=== PATIENT | female | born 1955 | race Caucasian/White ===

== ENCOUNTER 2017-07-19 10:05 | Emergency (ER) | payer OTHER ==
[~2017-07-19] VITALS: Ht 172.7 cm; Wt 94.0 kg
[~2017-07-19 10:05] MED LIST: ALPR1TAB7 PO; ATEN25TA PO; FIORINAL PO; HYDR-3972 PO; LOSA1TAB36 PO; ONDA4TAB12 PO; OXYC-138 PO; ZOLP5TAB8 PO
[2017-07-19 10:23] VITALS: BP 136/74
== END 2017-07-19 11:17 | disposition home or self-care (01) ==
LOC: ER 10:05
DX: K57.32 Diverticulitis of large intestine without perforation or abscess without bleeding (principal); I10 Essential (primary) hypertension; G89.29 Other chronic pain; G43.909 Migraine, unspecified, not intractable, without status migrainosus; Z87.442 Personal history of urinary calculi; Z90.49 Acquired absence of other specified parts of digestive tract; Z98.890 Other specified postprocedural states; Z88.2 Allergy status to sulfonamides; Z79.899 Other long term (current) drug therapy
CPT/HCPCS: 74176; 99284

== ENCOUNTER 2017-07-25 11:39 | Outpatient (CLI) | payer OTHER ==
[2017-07-25 12:05] LABS: BASOPHILS % (AUTO) 0.2 % (0-1); EOSINOPHILS # (AUTO) 0.3 X10'3 (0-0.9); HEMATOCRIT 40.7 % (35.0-45.0); HEMOGLOBIN 14.1 g/dl (12.0-16.0); LYMPHOCYTES # (AUTO) 3.2 X10'3 (1.1-4.8); LYMPHOCYTES % (AUTO) 36.8 % (21-51); MEAN CORPUSCULAR HEMOGLOBIN 30.2 PG (27.0-31.0); MEAN CORPUSCULAR HGB CONC 34.7 % (33.0-36.5); MEAN PLATELET VOLUME 8.2 FL (7.4-10.4); MONOCYTES # (AUTO) 0.5 X10'3 (0-0.9); NEUTROPHILS # (AUTO) 4.6 X10'3 (1.8-7.7); PLATELET COUNT 284 X10'3 (140-440); RED BLOOD COUNT 4.69 X10'6 (4.20-5.60); RED CELL DISTRIBUTION WIDTH 13.1 % (11.5-14.5); WHITE BLOOD COUNT 8.6 X10'3 (4.5-11.0)
[2017-07-25 12:30] LABS: ALANINE AMINOTRANSFERASE 35 U/L (12-78); ALBUMIN/GLOBULIN RATIO 1.1 (1.1-1.5); ALKALINE PHOSPHATASE 125 IU/L (46-116); ANION GAP 11 (8-16); ASPARTATE AMINO TRANSFERASE 22 U/L (10-37); BILIRUBIN,TOTAL 0.4 MG/DL (0.1-1.0); BLOOD UREA NITROGEN 10 MG/DL (7-18); BUN/CREATININE RATIO 12.7 (6.6-38.0); CALCIUM 9.3 MG/DL (8.5-10.1); CHLORIDE 102 MMOL/L (99-107); CHOL/HDL RATIO 3.1 (0.00-4.99); CHOLESTEROL 209 MG/DL (0-200); CREATININE 0.79 MG/DL (0.40-0.90); GLUCOSE 180 MG/DL (70-104); HDL CHOLESTEROL 67 MG/DL (35-60); LDL CHOLESTEROL 107 MG/DL (50-100); POTASSIUM 4.3 MMOL/L (3.5-5.1); SODIUM 142 MMOL/L (135-145); TOTAL PROTEIN 7.5 G/DL (6.4-8.2); TRIGLYCERIDES 166 MG/DL (20-135); eGFR 74 ML/MIN
== END 2017-07-25 23:59 | disposition home or self-care (01) ==
LOC: LAB 11:39
PROVIDERS: ATTEND Family Medicine
DX: E03.9 Hypothyroidism, unspecified (principal); I10 Essential (primary) hypertension; E78.5 Hyperlipidemia, unspecified; E11.9 Type 2 diabetes mellitus without complications; Z85.828 Personal history of other malignant neoplasm of skin
CPT/HCPCS: 36415; 80053; 80061; 84443; 85025

== ENCOUNTER 2017-09-16 16:43 | Emergency (ER) | payer OTHER ==
[~2017-09-16] VITALS: Ht 172.7 cm; Wt 94.5 kg
[2017-09-16] MEDS ORDERED: proMETHazine 25mg tablet PO ONE (16:55)
[2017-09-16] MEDS ORDERED: meperidine/PF 50mg/ml syringe IM ONE (16:55)
[2017-09-16 17:50] VITALS: BP 158/86
== END 2017-09-16 18:22 | disposition home or self-care (01) ==
LOC: ER 16:43
DX: R51 Headache (principal); I10 Essential (primary) hypertension; G89.29 Other chronic pain; Z98.890 Other specified postprocedural states
CPT/HCPCS: 96372; 99283; J2175; Q0169

== ENCOUNTER 2017-11-21 17:48 | Outpatient (CLI) | payer OTHER | END 2017-11-21 23:59 | disposition home or self-care (01) | LOC: RAD 17:48 | PROVIDERS: ATTEND Family Medicine | DX: M17.0 Bilateral primary osteoarthritis of knee (principal); I10 Essential (primary) hypertension; E78.5 Hyperlipidemia, unspecified; E03.9 Hypothyroidism, unspecified; E11.9 Type 2 diabetes mellitus without complications; Z88.2 Allergy status to sulfonamides; Z79.899 Other long term (current) drug therapy; E55.9 Vitamin D deficiency, unspecified | CPT/HCPCS: 73560; 73565 ==

== ENCOUNTER 2018-05-20 11:35 | Emergency (ER) | payer OTHER ==
[~2018-05-20] VITALS: Ht 172.7 cm; Wt 98.4 kg
[2018-05-20] MEDS ORDERED: aspirin 81mg tab.chew PO ONE (11:40)
[2018-05-20 12:02] LABS: BASOPHILS % (AUTO) 0.4 % (0-1); EOSINOPHILS # (AUTO) 0.2 X10'3 (0-0.9); EOSINOPHILS % (AUTO) 2.1 % (0-6); HEMATOCRIT 41.4 % (35.0-45.0); LYMPHOCYTES # (AUTO) 2.4 X10'3 (1.1-4.8); LYMPHOCYTES % (AUTO) 27.9 % (21-51); MEAN CORPUSCULAR HGB CONC 33.8 % (33.0-36.5); MEAN CORPUSCULAR VOLUME 88.8 FL (78-98); MEAN PLATELET VOLUME 8.3 FL (7.4-10.4); MONOCYTES # (AUTO) 0.4 X10'3 (0-0.9); MONOCYTES % (AUTO) 4.9 % (2-12); NEUTROPHILS # (AUTO) 5.7 X10'3 (1.8-7.7); NEUTROPHILS % (AUTO) 64.7 % (42-75); PLATELET COUNT 281 X10'3 (140-440); RED BLOOD COUNT 4.67 X10'6 (4.20-5.60); RED CELL DISTRIBUTION WIDTH 12.6 % (11.5-14.5); WHITE BLOOD COUNT 8.7 X10'3 (4.5-11.0)
[2018-05-20 12:16] LABS: ALANINE AMINOTRANSFERASE 32 U/L (12-78); ALBUMIN 3.9 G/DL (3.4-5.0); ALBUMIN/GLOBULIN RATIO 1.1 (1.1-1.5); ALKALINE PHOSPHATASE 134 IU/L (46-116); ANION GAP 11 (8-16); ASPARTATE AMINO TRANSFERASE 17 U/L (10-37); BILIRUBIN,TOTAL 0.3 MG/DL (0.1-1.0); BLOOD UREA NITROGEN 18 MG/DL (7-18); BUN/CREATININE RATIO 20.9 (6.6-38.0); CALCIUM 9.2 MG/DL (8.5-10.1); CHLORIDE 99 MMOL/L (99-107); CREATININE 0.86 MG/DL (0.40-0.90); GLUCOSE 263 MG/DL (70-104); POTASSIUM 3.8 MMOL/L (3.5-5.1); SODIUM 138 MMOL/L (135-145); TOTAL CARBON DIOXIDE 28.1 MMOL/L (24-32); TOTAL PROTEIN 7.4 G/DL (6.4-8.2); eGFR 67 ML/MIN
[2018-05-20 12:23] LABS: MAGNESIUM 1.7 MG/DL (1.5-2.4)
[2018-05-20] MEDS ORDERED: nitroGLYCERIN 0.4mg SUBLingual tab SL PRN (15:10)
[2018-05-20] MEDS ORDERED: metoprolol tartrate 1mg/ml inj IV PRN (15:10)
[2018-05-20] MEDS ORDERED: regadenoson 0.4mg/5ml syringe IV PRN (15:10)
[2018-05-20] MEDS ORDERED: aminophylline 250mg/10ml inj. IV PRN (15:10)
--- NOTE | 2018-05-20 16:21 | NUR ---
PT. HAD NO RELEIF HELP SO SHE CONTINUED TO DO X-RAYS FOR THE HOSPITAL WHILE BEING A PT. PT. SEEN MULTIPLE TIMES WITH X-RAY MACHINE. PT. WAS WAITING FOR A SECOND TROPONIN TO COME BACK. BOTH WERE 0.04... PT. IS SCHEDULED FOR A STRESS TEST EARLY AM.
[2018-05-20 18:14] VITALS: BP 142/90
== END 2018-05-20 17:16 | disposition home or self-care (01) ==
LOC: ER 11:35
DX: R07.89 Other chest pain (principal); R51 Headache; I10 Essential (primary) hypertension; E11.9 Type 2 diabetes mellitus without complications; G89.29 Other chronic pain; E78.00 Pure hypercholesterolemia, unspecified; Z90.49 Acquired absence of other specified parts of digestive tract; Z98.890 Other specified postprocedural states; Z88.8 Allergy status to other drugs, medicaments and biological substances; Z79.899 Other long term (current) drug therapy; Z95.9 Presence of cardiac and vascular implant and graft, unspecified
CPT/HCPCS: 36415; 80053; 83735; 83880; 84484; 85025; 93005; 99284; J0280

== ENCOUNTER 2018-05-21 08:54 | Outpatient (CLI) | payer OTHER ==
[2018-05-21] VITALS (8 sets, daily range): BP systolic 142–171; BP diastolic 78–98
[~2018-05-21] VITALS: Ht 172.7 cm; Wt 96.0 kg
[2018-05-21] MEDS ORDERED: nitroGLYCERIN 0.4mg SUBLingual tab SL PRN (09:45)
[2018-05-21] MEDS ORDERED: regadenoson 0.4mg/5ml syringe IV PRN (09:45)
[2018-05-21] MEDS ORDERED: aminophylline 250mg/10ml inj. IV PRN (09:45)
[2018-05-21] MEDS ORDERED: aminophylline inj. 10 ML IV ONE (10:15)
[2018-05-21] MEDS ORDERED: regadenoson 0.4mg/5ml syringe IV ONE (10:15)
== END 2018-05-21 23:59 | disposition home or self-care (01) ==
LOC: RAD 08:54
PROVIDERS: ATTEND Internal Medicine Interventional Cardiology
DX: R07.89 Other chest pain (principal); I10 Essential (primary) hypertension; Z82.49 Family history of ischemic heart disease and other diseases of the circulatory system; Z79.899 Other long term (current) drug therapy; Z88.8 Allergy status to other drugs, medicaments and biological substances; Z72.89 Other problems related to lifestyle
CPT/HCPCS: 78452; 93017; A9500; J0280

== ENCOUNTER 2018-08-20 12:31 | Emergency (ER) | payer OTHER ==
[~2018-08-20] VITALS: Ht 172.7 cm; Wt 97.0 kg
[2018-08-20 12:32] VITALS: BP 141/72
[2018-08-20] MEDS ORDERED: ketorolac trometh inj. 60 MG/2 ML VIAL IM ONE (12:45)
[2018-08-20 13:44] LABS: CLARITY,URINE CLEAR (Clear); COLOR,URINE YELLOW (Yellow); GLUCOSE, URINE 500 mg/dl (Neg); KETONES,URINE NEGATIVE (Neg); LEUKOCYTE ESTERASE ,URINE NEGATIVE (Neg); NITRITES, URINE NEGATIVE (Neg); OCCULT BLOOD,URINE NEGATIVE (Neg); PH,URINE 5.5 (4.8-8.0); PROTEIN,URINE NEGATIVE (Neg); UROBILINOGEN,URINE 0.2 E.U/dL (0.2-1.0)
[2018-08-20 13:46] LABS: UA COLLECTION TYPE VOIDED
== END 2018-08-20 14:32 | disposition home or self-care (01) ==
LOC: ER 12:31
DX: K57.30 Diverticulosis of large intestine without perforation or abscess without bleeding (principal); R16.0 Hepatomegaly, not elsewhere classified; I10 Essential (primary) hypertension; G89.29 Other chronic pain; Z90.49 Acquired absence of other specified parts of digestive tract; Z98.890 Other specified postprocedural states; Z88.8 Allergy status to other drugs, medicaments and biological substances; Z79.899 Other long term (current) drug therapy
CPT/HCPCS: 74176; 81003; 96372; 99284; J1885

== ENCOUNTER 2018-12-21 12:54 | Outpatient (CLI) | payer OTHER ==
[2019-01-13] MEDS ORDERED: TIZA4TAB11 PO (15:14)
== END 2018-12-21 23:59 | disposition home or self-care (01) ==
LOC: CARD DIAG 12:54
PROVIDERS: ATTEND Internal Medicine Interventional Cardiology
DX: I08.3 Combined rheumatic disorders of mitral, aortic and tricuspid valves (principal); I10 Essential (primary) hypertension
CPT/HCPCS: 93306

== ENCOUNTER 2019-01-22 07:17 | Day surgery (SDC) | payer BC, OTHER ==
[2019-01-13 15:15] LABS: RED BLOOD COUNT 4.75 X10'6 (4.20-5.60)
[2019-01-13 15:16] LABS: BASOPHILS # (AUTO) 0.1 X10'3 (0-0.2); BASOPHILS % (AUTO) 0.8 % (0-1); EOSINOPHILS # (AUTO) 0.2 X10'3 (0-0.9); EOSINOPHILS % (AUTO) 2.4 % (0-6); LYMPHOCYTES % (AUTO) 35.6 % (21-51); MEAN CORPUSCULAR HEMOGLOBIN 30.3 PG (27.0-31.0); MEAN CORPUSCULAR HGB CONC 34.6 g/dL (33.0-36.5); MEAN CORPUSCULAR VOLUME 87.6 FL (78-98); MEAN PLATELET VOLUME 8.3 FL (7.4-10.4); MONOCYTES # (AUTO) 0.5 X10'3 (0-0.9); MONOCYTES % (AUTO) 5.7 % (2-12); NEUTROPHILS # (AUTO) 4.6 X10'3 (1.8-7.7); NEUTROPHILS % (AUTO) 55.5 % (42-75); PRE OP HEMATOCRIT 41.6 % (35.0-45.0); PRE OP HEMOGLOBIN 14.4 g/dL (12.0-16.0); PRE OP PLATELET COUNT 290 X10'3 (140-440); RED CELL DISTRIBUTION WIDTH 13.4 % (11.5-14.5)
[2019-01-13 15:26] LABS: ALBUMIN 4.4 G/DL (3.4-5.0); ALBUMIN/GLOBULIN RATIO 1.3 (1.1-1.5); ALKALINE PHOSPHATASE 108 IU/L (46-116); BLOOD UREA NITROGEN 12 MG/DL (7-18); BUN/CREATININE RATIO 17.9 (6.6-38.0); CALCIUM 9.6 MG/DL (8.5-10.1); CHLORIDE 103 MMOL/L (99-107); CREATININE 0.67 MG/DL (0.40-0.90); PRE OP ALT 40 U/L (30-65); PRE OP ANION GAP 10 (8-16); PRE OP AST 22 U/L (10-37); PRE OP BILIRUB, TOTAL 0.3 MG/DL (0.0-1.0); PRE OP GLUCOSE 115 MG/DL (70-104); PRE OP POTASSIUM 4.2 MMOL/L (3.4-5.1); PRE OP SODIUM 142 MMOL/L (135-145); TOTAL PROTEIN 7.8 G/DL (6.4-8.2); eGFR 89 ML/MIN
[2019-01-22] VITALS (8 sets, daily range): BP systolic 85–164; BP diastolic 40–90
[~2019-01-22] VITALS: Ht 172.7 cm; Wt 96.1 kg
[~2019-01-22 07:17] MED LIST changes: -ALPR1TAB7 PO; -ATEN25TA PO; -FIORINAL PO; -ONDA4TAB12 PO; -OXYC-138 PO; +TIZA4TAB11 PO
[2019-01-22] MEDS ORDERED: ringers solution, lacted 1,000 ML IV SCH ×2 (07:30→12:59)
[2019-01-22] MEDS ORDERED: famotidine 20mg tablet PO ONE (07:30)
[2019-01-22] MEDS ORDERED: BUPIVAcaine/PF 2.5mg/ml (0.25%) 10ml vial ONE (07:30)
[2019-01-22] MEDS ORDERED: cefazolin/dext.iso 2gm/100ml 100 ML IV ONE (07:30)
--- NOTE | 2019-01-22 08:51 | NUR ---
BG REPORTED TO DR FERNANDEZ Addendum: 01/22/19 at 0902 by Azucena Mas RN Amended: Links added.
[2019-01-22] MEDS ORDERED: LIDOcaine 0.5% (5mg/ml) 50ml vial ONE (08:57)
[2019-01-22] MEDS ORDERED: fentaNYL/PF 50MCG/1 ML 2ML syringe ONE (09:38)
[2019-01-22] MEDS ORDERED: midazolam 2 mg/2 ml injection ONE ×3 (09:38→12:39)
[2019-01-22] MEDS ORDERED: meperidine/PF 25mg/ml syringe IV ONE (10:35)
[2019-01-22] MEDS ORDERED: propofol inj 20 ML IV ONE ×3 (12:28→13:03)
[2019-01-22] MEDS ORDERED: ondansetron/PF 4mg/2ml inj IV PRN (13:00)
[2019-01-22] MEDS ORDERED: proCHLORperazine 10 MG/2 ml inj IV PRN (13:00)
[2019-01-22] MEDS ORDERED: meperidine/PF 25mg/ml syringe IV PRN ×2 (13:00)
[2019-01-22] MEDS ORDERED: morphine 4 MG/ML inj SYRINge IV PRN ×2 (13:00)
--- NOTE | 2019-01-22 13:19 | NUR ---
Received from OR via [facility] , accompanied by Anesthesiologist JEREMY and report given by Anesthesiolgist. VSS. DENIES PAIN. 20G PIV IN RIGHT UE RUNNING LR AT 100. DENIES PAIN AT THIS TIME. + CAP REFILL, CSM ALL INTACT. VSS Addendum: 01/22/19 at 1451 by Zana Warren RN, RN Amended: Links added.
[2019-01-22] MEDS: meperidine/PF 25mg/ml syringe IV PRN ×2 (13:30→13:52)
--- NOTE | 2019-01-22 14:29 | NUR ---
ALL DC CRITERIA HAS BEEN MET. IV TAKEN OUT WITHOUT COMPLICATIONS. ALL INSTRUCTIONS COVERED AND ALL QUESTIONS ANSWERED. DRESSINGS CDI. OUT VIA WHEELCHAIR TO PERSONAL VEHICLE WHERE PATIENT WAS SECURED IN AND DRIVEN HOME BY FAMILY. HEADACHE MORE TOLERABLE AT THIS TIME. DRESSING IS CDI. ELEVATING AND BLOCK STILL IN PLACE. VSS. Addendum: 01/22/19 at 1450 by Zana Warren RN, RN Amended: Links added.
== END 2019-01-22 14:29 | disposition home or self-care (01) ==
LOC: PAS 07:17
PROVIDERS: ATTEND Orthopaedic Surgery Hand Surgery
DX: M18.12 Unilateral primary osteoarthritis of first carpometacarpal joint, left hand (principal); I10 Essential (primary) hypertension; E11.9 Type 2 diabetes mellitus without complications; G43.909 Migraine, unspecified, not intractable, without status migrainosus; E66.9 Obesity, unspecified; Z68.32 Body mass index [BMI] 32.0-32.9, adult; Z88.8 Allergy status to other drugs, medicaments and biological substances; Z79.899 Other long term (current) drug therapy; Z98.890 Other specified postprocedural states
CPT/HCPCS: 25447; 36415; 80053; 82948; 85025; 93005; C1776; J2001; J2175; J2250; J2270; J2704; J3010; J3490; J7120; A4215

== ENCOUNTER 2019-03-18 12:23 | Outpatient (CLI) | payer OTHER | END 2019-03-18 23:59 | disposition home or self-care (01) | LOC: RAD 12:23 | PROVIDERS: ATTEND Chiropractor | DX: M43.22 Fusion of spine, cervical region (principal); M40.292 Other kyphosis, cervical region; I65.29 Occlusion and stenosis of unspecified carotid artery | CPT/HCPCS: 72050 ==

== ENCOUNTER 2019-12-23 11:18 | Outpatient (CLI) | payer BC ==
[2019-12-23 12:06] LABS: BASOPHILS % (AUTO) 0.5 % (0-1); EOSINOPHILS # (AUTO) 0.1 X10'3 (0-0.9); EOSINOPHILS % (AUTO) 1.3 % (0-6); HEMOGLOBIN 14.5 g/dl (12.0-16.0); LYMPHOCYTES # (AUTO) 2.4 X10'3 (1.1-4.8); LYMPHOCYTES % (AUTO) 29.4 % (21-51); MEAN CORPUSCULAR HGB CONC 34.4 g/dL (33.0-36.5); MEAN CORPUSCULAR VOLUME 87.2 FL (78-98); MEAN PLATELET VOLUME 8.2 FL (7.4-10.4); MONOCYTES # (AUTO) 0.5 X10'3 (0-0.9); MONOCYTES % (AUTO) 5.7 % (2-12); NEUTROPHILS # (AUTO) 5.2 X10'3 (1.8-7.7); NEUTROPHILS % (AUTO) 63.1 % (42-75); PLATELET COUNT 289 X10'3 (140-440); RED BLOOD COUNT 4.82 X10'6 (4.20-5.60); RED CELL DISTRIBUTION WIDTH 13.4 % (11.5-14.5); WHITE BLOOD COUNT 8.2 X10'3 (4.5-11.0)
[2019-12-23 12:20] LABS: HEMOGLOBIN A1C 7.3 % (4.5-6.2)
[2019-12-23 12:25] LABS: ALANINE AMINOTRANSFERASE 26 U/L (12-78); ALBUMIN 4.1 G/DL (3.4-5.0); ALBUMIN/GLOBULIN RATIO 1.2 (1.1-1.5); ALKALINE PHOSPHATASE 108 IU/L (46-116); ANION GAP 10 (8-16); ASPARTATE AMINO TRANSFERASE 15 U/L (10-37); BILIRUBIN,TOTAL 0.5 MG/DL (0.1-1.0); BLOOD UREA NITROGEN 18 MG/DL (7-18); BUN/CREATININE RATIO 23.4 (6.6-38.0); CALCIUM 9.1 MG/DL (8.5-10.1); CHLORIDE 100 MMOL/L (99-107); CHOL/HDL RATIO 3.7 (0.00-4.99); CHOLESTEROL 227 MG/DL (0-200); CREATININE 0.77 MG/DL (0.40-0.90); GLUCOSE 119 MG/DL (70-104); HDL CHOLESTEROL 62 MG/DL (35-60); LDL CHOLESTEROL 135 MG/DL (50-100); POTASSIUM 3.5 MMOL/L (3.5-5.1); SODIUM 137 MMOL/L (135-145); TOTAL CARBON DIOXIDE 27.2 MMOL/L (24-32); TOTAL PROTEIN 7.4 G/DL (6.4-8.2); TRIGLYCERIDES 203 MG/DL (20-135); eGFR 75 ML/MIN
== END 2019-12-23 23:59 | disposition home or self-care (01) ==
LOC: LAB 11:18
PROVIDERS: ATTEND Nurse Practitioner
DX: Z00.01 Encounter for general adult medical examination with abnormal findings (principal); E11.9 Type 2 diabetes mellitus without complications; R79.89 Other specified abnormal findings of blood chemistry; R94.6 Abnormal results of thyroid function studies; E78.9 Disorder of lipoprotein metabolism, unspecified
CPT/HCPCS: 36415; 80053; 80061; 83036; 83520; 85025

== ENCOUNTER → 2020-10-14 | Outpatient (CLI) | payer BC | END | disposition home or self-care (01) | LOC: RAD 12:49 | DX: M79.671 Pain in right foot (principal) | CPT/HCPCS: 73620 ==

== ENCOUNTER 2020-11-15 13:44 | Outpatient (CLI) | payer BC | END 2020-11-15 23:59 | disposition home or self-care (01) | LOC: RAD 13:44 | PROVIDERS: ATTEND Nurse Practitioner | DX: K76.0 Fatty (change of) liver, not elsewhere classified (principal) | CPT/HCPCS: 76700 ==

== ENCOUNTER 2021-01-10 15:33 | Outpatient (CLI) | payer BC | END 2021-01-10 23:59 | disposition home or self-care (01) | LOC: RAD 15:33 | PROVIDERS: ATTEND Nurse Practitioner | DX: M25.561 Pain in right knee (principal); I87.8 Other specified disorders of veins | CPT/HCPCS: 73502 ==

== ENCOUNTER 2021-02-16 09:01 | Emergency (ER) | payer BC ==
[~2021-02-16] VITALS: Ht 177.8 cm; Wt 90.9 kg
[2021-02-16 09:05] VITALS: BP 159/94
[2021-02-16] MEDS ORDERED: LIDOcaine 5% patch TP STA (09:11)
[2021-02-16] MEDS ORDERED: HYDR-3972 PO (09:22)
[2021-02-16] MEDS ORDERED: mupirocin 2% ointment 22GM TP STA (09:22)
[2021-02-16] MEDS ORDERED: ketorolac trometh inj. 60 MG/2 ML VIAL IM ONE (09:25)
--- NOTE | 2021-02-16 10:10 | NUR ---
abraison elbow, pt washed and cream applied.
[2021-02-16] MEDS ORDERED: LIDO700A32 TOP (10:38)
== END 2021-02-16 10:42 | disposition home or self-care (01) ==
LOC: EEVIPCON 09:02 → ER 09:02
DX: S50.01XA Contusion of right elbow, initial encounter (principal); S50.312A Abrasion of left elbow, initial encounter; S80.212A Abrasion, left knee, initial encounter; S80.211A Abrasion, right knee, initial encounter; R07.89 Other chest pain; G43.909 Migraine, unspecified, not intractable, without status migrainosus; I10 Essential (primary) hypertension; G89.29 Other chronic pain; Z87.442 Personal history of urinary calculi; Z90.49 Acquired absence of other specified parts of digestive tract; Z98.890 Other specified postprocedural states; Z88.8 Allergy status to other drugs, medicaments and biological substances; Z79.899 Other long term (current) drug therapy; W01.0XXA Fall on same level from slipping, tripping and stumbling without subsequent striking against object, initial encounter; Y93.01 Activity, walking, marching and hiking; Y92.89 Other specified places as the place of occurrence of the external cause; Y99.8 Other external cause status
CPT/HCPCS: 71045; 71111; 96372; 99284; J1885

== ENCOUNTER 2021-04-05 12:43 | Outpatient (CLI) | payer BC ==
[~2021-04-05 12:43] MED LIST changes: +LIDO700A32 TOP
[2021-04-05 14:08] LABS: BASOPHILS % (AUTO) 0.5 % (0-1); EOSINOPHILS # (AUTO) 0.1 X10'3 (0-0.9); EOSINOPHILS % (AUTO) 1.2 % (0-6); HEMATOCRIT 42.5 % (35.0-45.0); HEMOGLOBIN 14.7 g/dl (12.0-16.0); LYMPHOCYTES # (AUTO) 1.9 X10'3 (1.1-4.8); LYMPHOCYTES % (AUTO) 23.7 % (21-51); MEAN CORPUSCULAR HEMOGLOBIN 29.8 PG (27.0-31.0); MEAN CORPUSCULAR HGB CONC 34.5 g/dL (33.0-36.5); MEAN CORPUSCULAR VOLUME 86.4 FL (78-98); MONOCYTES # (AUTO) 0.6 X10'3 (0-0.9); MONOCYTES % (AUTO) 7.5 % (2-12); NEUTROPHILS # (AUTO) 5.3 X10'3 (1.8-7.7); NEUTROPHILS % (AUTO) 67.1 % (42-75); PLATELET COUNT 272 X10'3 (140-440); RED BLOOD COUNT 4.92 X10'6 (4.20-5.60); RED CELL DISTRIBUTION WIDTH 13.4 % (11.5-14.5); WHITE BLOOD COUNT 7.9 X10'3 (4.5-11.0)
[2021-04-05 14:13] LABS: ALANINE AMINOTRANSFERASE 26 U/L (12-78); ALBUMIN 4.2 G/DL (3.4-5.0); ALBUMIN/GLOBULIN RATIO 1.2 (1.1-1.5); ALKALINE PHOSPHATASE 105 IU/L (46-116); ANION GAP 12 (8-16); ASPARTATE AMINO TRANSFERASE 17 U/L (10-37); BILIRUBIN,TOTAL 0.5 MG/DL (0.1-1.0); BLOOD UREA NITROGEN 12 MG/DL (7-18); BUN/CREATININE RATIO 15.8 (6.6-38.0); CALCIUM 9.3 MG/DL (8.5-10.1); CHLORIDE 101 MMOL/L (99-107); CHOL/HDL RATIO 3.5 (0.00-4.99); CHOLESTEROL 232 MG/DL (0-200); CREATININE 0.76 MG/DL (0.40-0.90); GLUCOSE 135 MG/DL (70-104); HDL CHOLESTEROL 66 MG/DL (35-60); LDL CHOLESTEROL 129 MG/DL (50-100); POTASSIUM 3.2 MMOL/L (3.5-5.1); SODIUM 140 MMOL/L (135-145); TOTAL PROTEIN 7.6 G/DL (6.4-8.2); TRIGLYCERIDES 219 MG/DL (20-135); eGFR 76 ML/MIN
[2021-04-05 14:42] LABS: HEMOGLOBIN A1C 6.7 % (4.5-6.2)
[2021-04-05 15:04] LABS: RHEUM FACTOR QUAL REFLEX TITER NEGATIVE (Neg)
[2021-04-07 11:41] LABS: MICROALB/CRT, RATIO 13 mg/g creat (0-29)
[2021-04-09 12:13] LABS: ANTINUCLEAR ANTIBODIES Negative (Negative)
== END 2021-04-05 23:59 | disposition home or self-care (01) ==
LOC: LAB 12:43
PROVIDERS: ATTEND Nurse Practitioner
DX: Z00.01 Encounter for general adult medical examination with abnormal findings (principal); M25.50 Pain in unspecified joint; E11.9 Type 2 diabetes mellitus without complications; E78.00 Pure hypercholesterolemia, unspecified; R68.89 Other general symptoms and signs; R94.6 Abnormal results of thyroid function studies; E78.9 Disorder of lipoprotein metabolism, unspecified; I10 Essential (primary) hypertension; E78.5 Hyperlipidemia, unspecified
CPT/HCPCS: 36415; 80053; 80061; 82043; 82570; 83036; 85025; 85651; 86038; 86430

== ENCOUNTER 2022-02-11 16:30 | Emergency (ER) | payer BC ==
[~2022-02-11] VITALS: Ht 172.7 cm; Wt 89.1 kg
[2022-02-11] MEDS ORDERED: BEBTELOVIMAB 175 MG/2 ML VIAL IV ONE (16:35)
[2022-02-11] MEDS ORDERED: ketorolac trometh. 30mg/ml inj. IV ONE (16:45)
[2022-02-11] MEDS ORDERED: acetaminophen 325mg tablet PO ONE (16:45)
[2022-02-11] MEDS ORDERED: DEXA6TAB6 PO (16:47)
[2022-02-11] MEDS ORDERED: dexamethasone sod phosphate 10mg/ml inj IV STA (16:47)
[2022-02-11] MEDS ORDERED: BUDE180A INH (16:47)
[2022-02-11] MEDS ORDERED: ALBU6.7H14 INH (16:47)
[2022-02-11 16:57] VITALS: BP 163/103
== END 2022-02-11 18:06 | disposition home or self-care (01) ==
LOC: ER 16:31
DX: U07.1 COVID-19 (principal)
CPT/HCPCS: 71045; 96374; 96375; 99284; J1100; J1885; M0222; Q0222

== ENCOUNTER 2022-11-06 14:41 | Emergency (ER) | payer BC ==
[~2022-11-06] VITALS: Ht 172.7 cm; Wt 100.0 kg
[~2022-11-06 14:41] MED LIST changes: +ALBU6.7H14 INH; +BUDE180A INH; +DEXA6TAB6 PO
[2022-11-06 14:45] VITALS: BP 138/95
== END 2022-11-06 16:17 | disposition home or self-care (01) ==
LOC: ER 14:42
DX: M25.561 Pain in right knee (principal); G43.909 Migraine, unspecified, not intractable, without status migrainosus; I10 Essential (primary) hypertension; Z88.8 Allergy status to other drugs, medicaments and biological substances; Z88.4 Allergy status to anesthetic agent; Z98.890 Other specified postprocedural states
CPT/HCPCS: 93971; 99284

== ENCOUNTER → 2022-11-07 | Outpatient (CLI) | payer BC | END | disposition home or self-care (01) | LOC: RAD 11:19 | PROVIDERS: ATTEND Nurse Practitioner Family | DX: M22.41 Chondromalacia patellae, right knee (principal); M25.861 Other specified joint disorders, right knee; R60.9 Edema, unspecified; Z74.09 Other reduced mobility; M25.461 Effusion, right knee; M25.561 Pain in right knee | CPT/HCPCS: 73721 ==

== ENCOUNTER 2023-01-09 13:01 | Outpatient (CLI) | payer BC ==
[2023-01-09 14:21] LABS: BASOPHILS # (AUTO) 0.1 X10'3 (0-0.2); BASOPHILS % (AUTO) 0.8 % (0-1); EOSINOPHILS # (AUTO) 0.2 X10'3 (0-0.9); EOSINOPHILS % (AUTO) 2.2 % (0-6); HEMATOCRIT 46.2 % (35.0-45.0); HEMOGLOBIN 15.6 g/dl (12.0-16.0); LYMPHOCYTES # (AUTO) 2.1 X10'3 (1.1-4.8); LYMPHOCYTES % (AUTO) 27.9 % (21-51); MEAN CORPUSCULAR HEMOGLOBIN 29.5 PG (27.0-31.0); MEAN CORPUSCULAR HGB CONC 33.8 g/dL (33.0-36.5); MEAN CORPUSCULAR VOLUME 87.5 FL (78-98); MEAN PLATELET VOLUME 8.3 FL (7.4-10.4); MONOCYTES # (AUTO) 0.4 X10'3 (0-0.9); MONOCYTES % (AUTO) 5.5 % (2-12); NEUTROPHILS # (AUTO) 4.8 X10'3 (1.8-7.7); NEUTROPHILS % (AUTO) 63.6 % (42-75); PLATELET COUNT 268 X10'3 (140-440); RED BLOOD COUNT 5.29 X10'6 (4.20-5.60); RED CELL DISTRIBUTION WIDTH 13.4 % (11.5-14.5); WHITE BLOOD COUNT 7.5 X10'3 (4.5-11.0)
[2023-01-09 14:49] LABS: ALANINE AMINOTRANSFERASE 34 U/L (12-78); ALBUMIN 4.2 G/DL (3.4-5.0); ALBUMIN/GLOBULIN RATIO 1.3 (1.1-1.5); ALKALINE PHOSPHATASE 126 IU/L (46-116); ANION GAP 11 (8-16); ASPARTATE AMINO TRANSFERASE 18 U/L (10-37); BILIRUBIN,TOTAL 0.4 MG/DL (0.1-1.0); BLOOD UREA NITROGEN 18 MG/DL (7-18); BUN/CREATININE RATIO 23.1 (10.0-20.0); CALCIUM 9.4 MG/DL (8.5-10.1); CHLORIDE 102 MMOL/L (99-107); CHOL/HDL RATIO 3.3 (0.00-4.99); CHOLESTEROL 220 MG/DL (0-200); CREATININE 0.78 MG/DL (0.40-0.90); GLUCOSE 193 MG/DL (70-104); HDL CHOLESTEROL 66 MG/DL (35-60); LDL CHOLESTEROL 120 MG/DL (50-100); SODIUM 138 MMOL/L (135-145); THYROID STIMULATING HORMONE 1.44 ulU/ml (0.34-4.50); TOTAL CARBON DIOXIDE 24.6 MMOL/L (24-32); TOTAL PROTEIN 7.4 G/DL (6.4-8.2); TRIGLYCERIDES 133 MG/DL (20-135); eGFR 74 ML/MIN
[2023-01-09 16:03] LABS: HEMOGLOBIN A1C 7.3 % (4.5-6.2)
== END 2023-01-09 23:59 | disposition home or self-care (01) ==
LOC: LAB 13:01
PROVIDERS: ATTEND Family Medicine
DX: E11.9 Type 2 diabetes mellitus without complications (principal); E78.00 Pure hypercholesterolemia, unspecified
CPT/HCPCS: 36415; 80053; 80061; 83036; 84436; 84443; 85025

== ENCOUNTER 2023-02-19 14:26 | Outpatient (CLI) | payer BC | END 2023-02-19 23:59 | disposition home or self-care (01) | LOC: RAD 14:26 | PROVIDERS: ATTEND Emergency Medicine | DX: S83.282A Other tear of lateral meniscus, current injury, left knee, initial encounter (principal); M25.462 Effusion, left knee; X58.XXXA Exposure to other specified factors, initial encounter; Y93.89 Activity, other specified; Y92.89 Other specified places as the place of occurrence of the external cause; Y99.8 Other external cause status | CPT/HCPCS: 73721 ==

== ENCOUNTER 2023-03-14 15:12 | Emergency (ER) | payer OTHER ==
[~2023-03-14] VITALS: Ht 172.7 cm; Wt 89.1 kg
[2023-03-14 15:20] VITALS: BP 134/77; PULSE 82; RESP 17; TEMP 97.7; O2SAT 94
--- NOTE | 2023-03-14 16:28 | NUR ---
SPOKE WITH PATIENT REGARDING MRI SCREENING FORM, STATES SHE WILL FILL OUT THE FORM EUGENIO.
== END 2023-03-14 18:30 | disposition home or self-care (01) ==
LOC: ER 15:12
DX: M75.102 Unspecified rotator cuff tear or rupture of left shoulder, not specified as traumatic (principal); M25.512 Pain in left shoulder; X58.XXXA Exposure to other specified factors, initial encounter; Y93.89 Activity, other specified; Y92.89 Other specified places as the place of occurrence of the external cause; Y99.8 Other external cause status
CPT/HCPCS: 73221; 99284

== ENCOUNTER 2023-04-08 12:16 | Day surgery (SDC) | payer BC ==
[2023-04-08] VITALS (9 sets, daily range): BP systolic 120–137; BP diastolic 8–88; PULSE 84–95; RESP 16–18; O2SAT 98–99
[~2023-04-08] VITALS: Ht 172.7 cm; Wt 41.8 kg
[~2023-04-08 12:16] MED LIST changes: -ALBU6.7H14 INH; -BUDE180A INH; -DEXA6TAB6 PO; -LIDO700A32 TOP; -LOSA1TAB36 PO; -ZOLP5TAB8 PO
[2023-04-08] MEDS ORDERED: EMPA25TA PO (12:45)
[2023-04-08] MEDS ORDERED: ATOR10TA70 PO (12:46)
[2023-04-08] MEDS ORDERED: fentaNYL/PF 50MCG/1 ML 2ML syringe ONE (12:47)
[2023-04-08] MEDS ORDERED: MIDAZolam 1 MG/ML 5ML VIAL ONE (12:48)
== END 2023-04-08 14:10 | disposition home or self-care (01) ==
LOC: GI LAB 12:16
PROVIDERS: ATTEND Internal Medicine Gastroenterology
DX: Z12.11 Encounter for screening for malignant neoplasm of colon (principal); D12.0 Benign neoplasm of cecum; D12.2 Benign neoplasm of ascending colon; K57.30 Diverticulosis of large intestine without perforation or abscess without bleeding; Z86.010 Personal history of colon polyps; Z83.719 Family history of colon polyps, unspecified
CPT/HCPCS: 45385; 99152; 99153; C1889; J2250; J3010; J7030; Z7512; 45380; A4620

== ENCOUNTER 2023-07-09 12:52 | Outpatient (CLI) | payer BC ==
[~2023-07-09 12:52] MED LIST changes: +ATOR10TA70 PO; +EMPA25TA PO
== END 2023-07-09 23:59 | disposition home or self-care (01) ==
LOC: RAD 12:52
PROVIDERS: ATTEND Orthopaedic Surgery
DX: S83.207A Unspecified tear of unspecified meniscus, current injury, left knee, initial encounter (principal); M71.21 Synovial cyst of popliteal space [Baker], right knee; M25.461 Effusion, right knee; M85.88 Other specified disorders of bone density and structure, other site; X58.XXXA Exposure to other specified factors, initial encounter; Y93.89 Activity, other specified; Y92.89 Other specified places as the place of occurrence of the external cause; Y99.8 Other external cause status
CPT/HCPCS: 73564

== ENCOUNTER 2023-08-22 05:23 | Day surgery (SDC) | payer BC ==
[2023-08-19 11:30] LABS: BASOPHILS % (AUTO) 0.4 % (0-1); EOSINOPHILS # (AUTO) 0.1 X10'3 (0-0.9); EOSINOPHILS % (AUTO) 1.2 % (0-6); LYMPHOCYTES # (AUTO) 1.8 X10'3 (1.1-4.8); LYMPHOCYTES % (AUTO) 17.8 % (21-51); MEAN CORPUSCULAR HEMOGLOBIN 29.8 PG (27.0-31.0); MEAN CORPUSCULAR HGB CONC 33.7 g/dL (33.0-36.5); MEAN CORPUSCULAR VOLUME 88.4 FL (78-98); MEAN PLATELET VOLUME 7.8 FL (7.4-10.4); MONOCYTES # (AUTO) 0.6 X10'3 (0-0.9); NEUTROPHILS # (AUTO) 7.4 X10'3 (1.8-7.7); NEUTROPHILS % (AUTO) 74.6 % (42-75); PRE OP HEMOGLOBIN 15.2 g/dL (12.0-16.0); PRE OP PLATELET COUNT 239 X10'3 (140-440); PRE OP WHITE BLOOD COUNT 9.9 10'3 (4.8-10.8); RED BLOOD COUNT 5.09 X10'6 (4.20-5.60); RED CELL DISTRIBUTION WIDTH 13.6 % (11.5-14.5)
[2023-08-19 11:54] LABS: ALBUMIN 3.9 G/DL (3.4-5.0); ALBUMIN/GLOBULIN RATIO 1.1 (1.1-1.5); ALKALINE PHOSPHATASE 114 IU/L (46-116); BLOOD UREA NITROGEN 9 MG/DL (7-18); BUN/CREATININE RATIO 11.5 (10.0-20.0); CHLORIDE 102 MMOL/L (99-107); CREATININE 0.78 MG/DL (0.40-0.90); PRE OP ALT 24 U/L (30-65); PRE OP ANION GAP 8 (8-16); PRE OP AST 15 U/L (10-37); PRE OP BILIRUB, TOTAL 0.5 MG/DL (0.0-1.0); PRE OP GLUCOSE 145 MG/DL (70-104); PRE OP POTASSIUM 4.1 MMOL/L (3.4-5.1); PRE OP SODIUM 139 MMOL/L (135-145); TOTAL CARBON DIOXIDE 28.8 MMOL/L (24-32); TOTAL PROTEIN 7.5 G/DL (6.4-8.2); eGFR 73 ML/MIN
[~2023-08-22] VITALS: Ht 172.7 cm; Wt 85.9 kg
[2023-08-22] VITALS (11 sets, daily range): BP systolic 126–145; BP diastolic 66–86; PULSE 91–107; RESP 12–16; TEMP 98.1; O2SAT 93–98
[~2023-08-22 05:23] MED LIST changes: +ESZO2TAB56 PO; +SEMA2PEN SQ; +TRAZ-251 PO
[2023-08-22] MEDS: ringers solution, lacted 1,000 ML IV SCH (06:00)
[2023-08-22] MEDS: famotidine 20mg tablet PO ONE (06:00)
[2023-08-22] MEDS: cefazolin 2gm/D5W 100mL 100 ML IV ONE (06:02)
[2023-08-22] MEDS: HYDROcodone/acetaminophen 10/325mg tab PO ONE (06:53)
[2023-08-22] MEDS ORDERED: propofol inj 20 ML IV ONE (07:04)
[2023-08-22] MEDS ORDERED: midazolam 1 mg/ML 2ml injection ONE (07:04)
[2023-08-22] MEDS ORDERED: fentaNYL/PF 50MCG/1 ML 2ML syringe ONE (07:04)
[2023-08-22] MEDS ORDERED: ondansetron/PF 4mg/2ml inj ONE (07:05)
[2023-08-22] MEDS ORDERED: dexamethasone sod phosphate 4mg/ml inj. ONE (07:05)
[2023-08-22] MEDS ORDERED: BUPIVAcaine 0.5% inj/PF 30 ML ONE ×2 (07:05→07:06)
[2023-08-22] MEDS ORDERED: meperidine/PF 25mg/ml syringe IV PRN ×2 (07:10)
[2023-08-22] MEDS ORDERED: morphine 4 MG/ML inj SYRINge IV PRN (07:10)
[2023-08-22] MEDS ORDERED: ringers solution, lacted 1,000 ML IV SCH (07:10)
[2023-08-22] MEDS ORDERED: morphine 2 MG/ML inj. syringe IV PRN (07:10)
[2023-08-22] MEDS ORDERED: proCHLORperazine 10 MG/2 ml inj IV PRN (07:10)
[2023-08-22] MEDS ORDERED: ondansetron/PF 4mg/2ml inj IV PRN (07:10)
[2023-08-22] MEDS ORDERED: sevoflurane 250ml liquid IH ONE (07:13)
[2023-08-22] MEDS: LIDOcaine 1% w/EPI 1:100,000 inj. MDV 50 ML VIAL ONE (08:10)
[2023-08-22] MEDS: LIDOcaine 1% 30ml preserv. free vial ONE (08:10)
[2023-08-22] MEDS: morphine 10mg/ml inj. ONE (08:11)
[2023-08-22] MEDS: meperidine/PF 25mg/ml syringe IV PRN (08:17)
== END 2023-08-22 09:29 | disposition home or self-care (01) ==
LOC: PAS 05:23
PROVIDERS: ATTEND Orthopaedic Surgery
DX: S83.231A Complex tear of medial meniscus, current injury, right knee, initial encounter (principal); S83.281A Other tear of lateral meniscus, current injury, right knee, initial encounter; M94.261 Chondromalacia, right knee; I10 Essential (primary) hypertension; E11.9 Type 2 diabetes mellitus without complications; E66.9 Obesity, unspecified; I20.9 Angina pectoris, unspecified; Z79.891 Long term (current) use of opiate analgesic; Z79.899 Other long term (current) drug therapy; Z98.890 Other specified postprocedural states; Z68.28 Body mass index [BMI] 28.0-28.9, adult; Z88.8 Allergy status to other drugs, medicaments and biological substances; X58.XXXA Exposure to other specified factors, initial encounter; Y93.89 Activity, other specified; Y92.89 Other specified places as the place of occurrence of the external cause; Y99.8 Other external cause status
CPT/HCPCS: 29880; 36415; 80053; 82948; 85025; 93005; J0665; J0690; J1100; J2175; J2250; J2274; J2405; J2704; J3010; J3490; J7120; Z7506; Z7512; A4215; A4618; A6253; A6449; A7000; S0020

== ENCOUNTER 2023-12-31 15:58 | Outpatient (CLI) | payer BC ==
[2023-12-31 16:29] LABS: BASOPHILS % (AUTO) 0.4 % (0-1); EOSINOPHILS # (AUTO) 0.1 X10'3 (0-0.9); HEMATOCRIT 44.1 % (35.0-45.0); HEMOGLOBIN 15.1 g/dl (12.0-16.0); LYMPHOCYTES % (AUTO) 22.3 % (21-51); MEAN CORPUSCULAR HEMOGLOBIN 30.7 PG (27.0-31.0); MEAN CORPUSCULAR HGB CONC 34.2 g/dL (33.0-36.5); MEAN CORPUSCULAR VOLUME 89.7 FL (78-98); MEAN PLATELET VOLUME 7.8 FL (7.4-10.4); MONOCYTES # (AUTO) 0.5 X10'3 (0-0.9); MONOCYTES % (AUTO) 5.4 % (2-12); NEUTROPHILS # (AUTO) 6.2 X10'3 (1.8-7.7); NEUTROPHILS % (AUTO) 70.9 % (42-75); PLATELET COUNT 235 X10'3 (140-440); RED BLOOD COUNT 4.91 X10'6 (4.20-5.60); RED CELL DISTRIBUTION WIDTH 13.5 % (11.5-14.5); WHITE BLOOD COUNT 8.7 X10'3 (4.5-11.0)
[2023-12-31] MEDS ORDERED: iohexol 300mg/ml 100ml inj. ONE (16:58)
[2023-12-31 17:05] LABS: HEMOGLOBIN A1C 6.6 % (4.5-6.2)
[2023-12-31 17:44] LABS: ALANINE AMINOTRANSFERASE 18 U/L (12-78); ALBUMIN/GLOBULIN RATIO 1.2 (1.1-1.5); ALKALINE PHOSPHATASE 107 IU/L (46-116); ANION GAP 16 (8-16); ASPARTATE AMINO TRANSFERASE 16 U/L (10-37); BILIRUBIN,TOTAL 0.3 MG/DL (0.1-1.0); BLOOD UREA NITROGEN 18 MG/DL (7-18); BUN/CREATININE RATIO 19.8 (10.0-20.0); CALCIUM 9.2 MG/DL (8.5-10.1); CHLORIDE 102 MMOL/L (99-107); CHOL/HDL RATIO 3.5 (0.00-4.99); CHOLESTEROL 229 MG/DL (0-200); CREATININE 0.91 MG/DL (0.40-0.90); GLUCOSE 153 MG/DL (70-104); HDL CHOLESTEROL 66 MG/DL (35-60); LDL CHOLESTEROL 125 MG/DL (50-100); POTASSIUM 4.1 MMOL/L (3.5-5.1); SODIUM 137 MMOL/L (135-145); THYROID STIMULATING HORMONE 1.16 ulU/ml (0.34-4.50); TOTAL CARBON DIOXIDE 19.2 MMOL/L (24-32); TOTAL PROTEIN 7.3 G/DL (6.4-8.2); TRIGLYCERIDES 179 MG/DL (20-135); eGFR 61 ML/MIN
[2024-01-02 16:34] LABS: CREATININE, URINE 108.1 mg/dL (Not Estab.); MICROALBUMIN,U,RANDOM 16.7 ug/mL (Not Estab.)
== END 2023-12-31 23:59 | disposition home or self-care (01) ==
LOC: RAD 15:58
PROVIDERS: ATTEND Physician Assistant
DX: J32.9 Chronic sinusitis, unspecified (principal); E11.9 Type 2 diabetes mellitus without complications; Z00.00 Encounter for general adult medical examination without abnormal findings
CPT/HCPCS: 36415; 70488; 80053; 80061; 82043; 82570; 83036; 84436; 84443; 85025; Q9967

== ENCOUNTER 2024-03-31 13:12 | Emergency (ER) | payer BC ==
[~2024-03-31] VITALS: Ht 172.7 cm; Wt 85.0 kg
[2024-03-31 13:14] VITALS: BP 122/88; PULSE 89; TEMP 97.8; O2SAT 100
[2024-03-31] MEDS ORDERED: HYDR-3965 PO (13:43)
[2024-03-31] MEDS: ketorolac trometh 30MG/ML vial 30 MG/ML VIAL IM ONE (13:48)
[2024-03-31 13:57] VITALS: RESP 18
[2024-03-31] MEDS ORDERED: OXYC-658 PO (17:32)
[2024-03-31] MEDS ORDERED: ONDA-243 PO (17:32)
== END 2024-03-31 13:58 | disposition home or self-care (01) ==
LOC: ER 13:13
DX: R10.9 Unspecified abdominal pain (principal); I10 Essential (primary) hypertension; Z88.5 Allergy status to narcotic agent; Z90.49 Acquired absence of other specified parts of digestive tract
CPT/HCPCS: 96372; 99283; J1885

== ENCOUNTER 2024-03-31 17:16 | Emergency (ER) | payer BC ==
[~2024-03-31] VITALS: Ht 172.7 cm; Wt 85.0 kg
[~2024-03-31 17:16] MED LIST changes: +HYDR-3965 PO
[2024-03-31] MEDS ORDERED: ONDA-243 PO (17:32)
[2024-03-31] MEDS ORDERED: OXYC-658 PO (17:32)
[2024-03-31 17:34] VITALS: BP 150/93; PULSE 82; TEMP 98.1; O2SAT 98
[2024-03-31] MEDS: ketorolac trometh 15mg/ml vial 15 MG/ML ML IV ONE (17:58)
[2024-03-31] MEDS: morphine 4 MG/ML inj SYRINge IV PRN (17:58)
[2024-03-31] MEDS: normal saline 1000ml 1,000 ML IV ONE (17:58)
[2024-03-31 18:06] LABS: BILIRUBIN,URINE NEGATIVE (Neg); CLARITY,URINE CLEAR (Clear); COLOR,URINE YELLOW (Yellow); GLUCOSE, URINE >=1000 mg/dl (Neg); KETONES,URINE TRACE mg/dl (Neg); LEUKOCYTE ESTERASE ,URINE NEGATIVE (Neg); NITRITES, URINE NEGATIVE (Neg); OCCULT BLOOD,URINE NEGATIVE (Neg); PROTEIN,URINE NEGATIVE (Neg); UROBILINOGEN,URINE 0.2 E.U/dL (0.2-1.0)
[2024-03-31 18:14] LABS: UA COLLECTION TYPE NON-SPECIFIED
[2024-03-31 18:17] LABS: BACTERIA,URINE FEW /HPF (Neg); MUCUS STRANDS NONE SEEN /LPF (Neg); RBC,URINE 0-2 /HPF (0-2); RENAL CELLS, URINE FEW /HPF; SQUAMOUS EPITHELIAL CELL,UR FEW /LPF (FEW); TRANSITIONAL EPI CELLS,URINE FEW /HPF
[2024-03-31 18:30] VITALS: RESP 16
[2024-03-31] MEDS: morphine 4 MG/ML inj SYRINge IV ONE (18:30)
[2024-03-31 18:54] LABS: BASOPHILS % (AUTO) 0.4 % (0-1); EOSINOPHILS # (AUTO) 0.1 X10'3 (0-0.9); EOSINOPHILS % (AUTO) 1.2 % (0-6); HEMATOCRIT 40.2 % (35.0-45.0); HEMOGLOBIN 13.7 g/dl (12.0-16.0); LYMPHOCYTES # (AUTO) 2.5 X10'3 (1.1-4.8); LYMPHOCYTES % (AUTO) 37.9 % (21-51); MEAN CORPUSCULAR HEMOGLOBIN 29.9 PG (27.0-31.0); MEAN PLATELET VOLUME 8.1 FL (7.4-10.4); MONOCYTES # (AUTO) 0.4 X10'3 (0-0.9); MONOCYTES % (AUTO) 6.9 % (2-12); NEUTROPHILS # (AUTO) 3.5 X10'3 (1.8-7.7); NEUTROPHILS % (AUTO) 53.6 % (42-75); PLATELET COUNT 240 X10'3 (140-440); RED BLOOD COUNT 4.57 X10'6 (4.20-5.60); RED CELL DISTRIBUTION WIDTH 12.7 % (11.5-14.5); WHITE BLOOD COUNT 6.5 X10'3 (4.5-11.0)
[2024-03-31 19:19] LABS: ALANINE AMINOTRANSFERASE 23 U/L (12-78); ALBUMIN 3.7 G/DL (3.4-5.0); ALBUMIN/GLOBULIN RATIO 1.4 (1.1-1.5); ALKALINE PHOSPHATASE 89 IU/L (46-116); ANION GAP 6 (8-16); ASPARTATE AMINO TRANSFERASE 23 U/L (10-37); BILIRUBIN,TOTAL 0.5 MG/DL (0.1-1.0); BLOOD UREA NITROGEN 13 MG/DL (7-18); BUN/CREATININE RATIO 15.3 (10.0-20.0); CALCIUM 8.5 MG/DL (8.5-10.1); CHLORIDE 102 MMOL/L (99-107); CREATININE 0.85 MG/DL (0.40-0.90); GLUCOSE 121 MG/DL (70-104); SODIUM 137 MMOL/L (135-145); TOTAL CARBON DIOXIDE 28.9 MMOL/L (24-32); TOTAL PROTEIN 6.4 G/DL (6.4-8.2); eCRCL 64 ML/MIN; eGFR 67 ML/MIN
[2024-03-31 19:42] LABS: LIPASE 27 U/L (16-77)
[2024-03-31 19:43] LABS: POTASSIUM 3.5 MMOL/L (3.5-5.1)
== END 2024-03-31 19:51 | disposition home or self-care (01) ==
LOC: ER 17:17
DX: N20.0 Calculus of kidney (principal); I10 Essential (primary) hypertension; G89.29 Other chronic pain; G43.909 Migraine, unspecified, not intractable, without status migrainosus; Z87.442 Personal history of urinary calculi; Z90.49 Acquired absence of other specified parts of digestive tract; Z88.8 Allergy status to other drugs, medicaments and biological substances; Z79.899 Other long term (current) drug therapy; Z98.890 Other specified postprocedural states
CPT/HCPCS: 36415; 74176; 80053; 81001; 83690; 85025; 87088; 96361; 96374; 96375; 96376; 99285; J1885; J2270; J7030

== ENCOUNTER 2024-07-30 12:00 | Outpatient (CLI) | payer BC ==
[~2024-07-30 12:00] MED LIST changes: -HYDR-3965 PO; +ONDA-243 PO
[2024-07-30 12:34] LABS: BASOPHILS % (AUTO) 0.6 % (0-1); EOSINOPHILS # (AUTO) 0.1 X10'3 (0-0.9); EOSINOPHILS % (AUTO) 0.9 % (0-6); HEMATOCRIT 42.6 % (35.0-45.0); HEMOGLOBIN 14.7 g/dl (12.0-16.0); LYMPHOCYTES # (AUTO) 1.9 X10'3 (1.1-4.8); LYMPHOCYTES % (AUTO) 25.7 % (21-51); MEAN CORPUSCULAR HEMOGLOBIN 30.3 PG (27.0-31.0); MEAN CORPUSCULAR HGB CONC 34.5 g/dL (33.0-36.5); MEAN CORPUSCULAR VOLUME 87.7 FL (78-98); MEAN PLATELET VOLUME 7.5 FL (7.4-10.4); MONOCYTES # (AUTO) 0.4 X10'3 (0-0.9); MONOCYTES % (AUTO) 5.8 % (2-12); PLATELET COUNT 271 X10'3 (140-440); RED BLOOD COUNT 4.86 X10'6 (4.20-5.60); RED CELL DISTRIBUTION WIDTH 13.3 % (11.5-14.5); WHITE BLOOD COUNT 7.5 X10'3 (4.5-11.0)
[2024-07-30 12:45] LABS: HEMOGLOBIN A1C 6.1 % (4.5-6.2)
[2024-07-30 12:59] LABS: ALANINE AMINOTRANSFERASE 28 U/L (12-78); ALBUMIN 3.9 G/DL (3.4-5.0); ALBUMIN/GLOBULIN RATIO 1.2 (1.1-1.5); ALKALINE PHOSPHATASE 108 IU/L (46-116); ANION GAP 8 (8-16); ASPARTATE AMINO TRANSFERASE 16 U/L (10-37); BILIRUBIN,TOTAL 0.5 MG/DL (0.1-1.0); BLOOD UREA NITROGEN 11 MG/DL (7-18); BUN/CREATININE RATIO 14.3 (10.0-20.0); CALCIUM 8.7 MG/DL (8.5-10.1); CHLORIDE 105 MMOL/L (99-107); CHOLESTEROL 198 MG/DL (0-200); CREATININE 0.77 MG/DL (0.40-0.90); GLUCOSE 153 MG/DL (70-104); HDL CHOLESTEROL 65 MG/DL (35-60); LDL CHOLESTEROL 100 MG/DL (50-100); POTASSIUM 3.9 MMOL/L (3.5-5.1); SODIUM 139 MMOL/L (135-145); THYROID STIMULATING HORMONE 1.18 ulU/ml (0.34-4.50); TOTAL CARBON DIOXIDE 26.5 MMOL/L (24-32); TOTAL PROTEIN 7.2 G/DL (6.4-8.2); TRIGLYCERIDES 128 MG/DL (20-135); eGFR 74 ML/MIN
== END 2024-07-30 23:59 | disposition home or self-care (01) ==
LOC: RAD 12:00
PROVIDERS: ATTEND Physician Assistant
DX: E11.9 Type 2 diabetes mellitus without complications (principal); Z00.00 Encounter for general adult medical examination without abnormal findings; Z79.891 Long term (current) use of opiate analgesic
CPT/HCPCS: 36415; 80053; 80061; 82043; 83036; 84436; 84443; 85025

== ENCOUNTER 2024-08-12 14:23 | Outpatient (CLI) | payer BC ==
[2024-08-16] MEDS ORDERED: HYDR-3972 PO (16:01)
== END 2024-08-12 23:59 | disposition home or self-care (01) ==
LOC: RAD 14:23
PROVIDERS: ATTEND Otolaryngology
DX: K80.20 Calculus of gallbladder without cholecystitis without obstruction (principal); J32.0 Chronic maxillary sinusitis; J32.2 Chronic ethmoidal sinusitis
CPT/HCPCS: 70486; 74176

== ENCOUNTER 2024-08-31 05:56 | Day surgery (SDC) | payer BC ==
[2024-08-16 16:06] LABS: BASOPHILS % (AUTO) 0.6 % (0-1); EOSINOPHILS # (AUTO) 0.1 X10'3 (0-0.9); EOSINOPHILS % (AUTO) 0.8 % (0-6); LYMPHOCYTES # (AUTO) 1.8 X10'3 (1.1-4.8); LYMPHOCYTES % (AUTO) 23.7 % (21-51); MEAN CORPUSCULAR HEMOGLOBIN 29.6 PG (27.0-31.0); MEAN CORPUSCULAR HGB CONC 33.8 g/dL (33.0-36.5); MEAN CORPUSCULAR VOLUME 87.6 FL (78-98); MEAN PLATELET VOLUME 7.5 FL (7.4-10.4); MONOCYTES # (AUTO) 0.4 X10'3 (0-0.9); MONOCYTES % (AUTO) 5.6 % (2-12); NEUTROPHILS # (AUTO) 5.3 X10'3 (1.8-7.7); NEUTROPHILS % (AUTO) 69.3 % (42-75); PRE OP HEMOGLOBIN 15.5 g/dL (12.0-16.0); PRE OP PLATELET COUNT 272 X10'3 (140-440); PRE OP WHITE BLOOD COUNT 7.6 10'3 (4.8-10.8); RED BLOOD COUNT 5.25 X10'6 (4.20-5.60); RED CELL DISTRIBUTION WIDTH 12.7 % (11.5-14.5)
[2024-08-16 16:21] LABS: PRE OP PROTIME 10.1 SECONDS (9.0-12.0)
[2024-08-16 16:32] LABS: ALBUMIN/GLOBULIN RATIO 1.1 (1.1-1.5); ALKALINE PHOSPHATASE 105 IU/L (46-116); BLOOD UREA NITROGEN 12 MG/DL (7-18); BUN/CREATININE RATIO 18.8 (10.0-20.0); CHLORIDE 103 MMOL/L (99-107); CREATININE 0.64 MG/DL (0.40-0.90); PRE OP ALT 25 U/L (30-65); PRE OP ANION GAP 6 (8-16); PRE OP AST 14 U/L (10-37); PRE OP GLUCOSE 163 MG/DL (70-104); PRE OP SODIUM 141 MMOL/L (135-145); TOTAL CARBON DIOXIDE 32.3 MMOL/L (24-32); TOTAL PROTEIN 7.6 G/DL (6.4-8.2); eGFR > 90 ML/MIN
[2024-08-16 16:38] LABS: PRE OP BILIRUB, TOTAL 0.4 MG/DL (0.0-1.0)
[~2024-08-31] VITALS: Ht 172.7 cm; Wt 83.9 kg
[2024-08-31] VITALS (18 sets, daily range): BP systolic 113–198; BP diastolic 70–115; PULSE 81–95; RESP 12–18; TEMP 97.9; O2SAT 93–100
[~2024-08-31 05:56] MED LIST changes: +ERYT1OIN6 EACHEYE; -ONDA-243 PO; -SEMA2PEN SQ
[2024-08-31] MEDS: ceFAZolin 2gm in dextrose, iso 50 ML IV ONE (06:11)
[2024-08-31] MEDS: tranexamic acid 1gm/0.7% sal. 100 ML IV ONE (06:11)
[2024-08-31] MEDS: famotidine 20mg tablet PO ONE (06:27)
[2024-08-31] MEDS: ringers solution, lacted 1,000 ML IV SCH (06:27)
[2024-08-31] MEDS ORDERED: cocaine 4% topical solution 4ml bottle ONE (06:39)
[2024-08-31] MEDS ORDERED: methylPREDNISolone acetate 80mg/ml inj**IM only ONE (06:39)
[2024-08-31] MEDS ORDERED: epiNEPHrine 1 mg/ml 30ml MDV ONE (06:39)
[2024-08-31] MEDS ORDERED: LIDOcaine 1% W/epiNEPHrine 1:100,000 20ml vial ONE (06:39)
[2024-08-31] MEDS ORDERED: mupirocin 2% ointment 22GM ONE (06:40)
[2024-08-31] MEDS ORDERED: Thrombin (Bovine) 5,000 unit vial TP ONE (06:40)
[2024-08-31] MEDS ORDERED: oxymetazoline 15 ML nasal spray NS ONE (06:40)
[2024-08-31] MEDS: oxymetazoline 15 ML nasal spray NS ONE (07:17)
[2024-08-31] MEDS ORDERED: sevoflurane 250ml liquid IH ONE (07:57)
[2024-08-31] MEDS ORDERED: midazolam 1 mg/ML 2ml injection ONE (08:04)
[2024-08-31] MEDS ORDERED: fentaNYL/PF 50MCG/1 ML 2ML syringe ONE (08:04)
[2024-08-31] MEDS ORDERED: LIDOcaine 2% (20mg/ml) 5ml vial ONE (08:05)
[2024-08-31] MEDS ORDERED: propofol inj 20 ML IV ONE (08:05)
[2024-08-31] MEDS ORDERED: ondansetron/PF 4mg/2ml inj IV PRN (08:40)
[2024-08-31] MEDS ORDERED: meperidine/PF 25mg/ml syringe IV PRN ×3 (08:40)
[2024-08-31] MEDS ORDERED: proCHLORperazine 10 MG/2 ml inj IV PRN (08:40)
[2024-08-31] MEDS ORDERED: ringers solution, lacted 1,000 ML IV SCH (08:40)
[2024-08-31] MEDS ORDERED: morphine 2 MG/ML inj. syringe IV PRN (08:40)
[2024-08-31] MEDS ORDERED: acetaminophen 1,000mg/100ml IV 100 ML IV ONE (09:07)
[2024-08-31] MEDS ORDERED: ceFAZolin 1000mg inj ONE (09:28)
[2024-08-31] MEDS ORDERED: dexamethasone sod phosphate 4mg/ml inj. ONE (09:46)
[2024-08-31] MEDS ORDERED: ondansetron/PF 4mg/2ml inj ONE (09:46)
[2024-08-31] MEDS: labetalol 20mg/4ml (5mg/ml) syringe IV PRN (09:55)
[2024-08-31] MEDS: morphine 4 MG/ML inj SYRINge IV PRN (09:58)
[2024-08-31] MEDS ORDERED: HYDROmorphone/PF 0.2 MG/ML SYRINGE IV PRN (10:10)
[2024-08-31] MEDS: enalaprilat 1.25mg/ml 2ml vial IV PRN (10:12)
[2024-08-31] MEDS: HYDROmorphone/PF 0.2 MG/ML SYRINGE IV PRN (10:14)
[2024-08-31] MEDS: mupirocin 2% nasal ointment 1gm UD NS ONE (10:43)
[2024-08-31] MEDS: salt irrigation nasal spray 45 ML SPRAY NS ONE (10:43)
[2024-08-31] MEDS: HYDROcodone/acetaminophen 5mg/325mg tablet PO ONE (11:09)
== END 2024-08-31 11:33 | disposition home or self-care (01) ==
LOC: PAS 05:56
PROVIDERS: ATTEND Otolaryngology
DX: J34.2 Deviated nasal septum (principal); J32.9 Chronic sinusitis, unspecified; J34.3 Hypertrophy of nasal turbinates; E11.9 Type 2 diabetes mellitus without complications; E78.5 Hyperlipidemia, unspecified; Z79.899 Other long term (current) drug therapy; Z79.01 Long term (current) use of anticoagulants
CPT/HCPCS: 30140; 30520; 31254; 31267; 31276; 36415; 61782; 80053; 85025; 85610; 85730; 87102; 93005; A6402; J0131; J0171; J0690; J1100; J1171; J2003; J2250; J2270; J2405; J2704; J3010; J3490; J7030; J7040; J7120; Z7506; Z7508; Z7512; A4618; A6449; A7000; J1010

== ENCOUNTER 2025-04-26 12:50 | Outpatient (CLI) | payer BC ==
[~2025-04-26 12:50] MED LIST changes: -ERYT1OIN6 EACHEYE; +ESZO2TAB31 PO
--- NOTE | 2025-04-27 17:38 | CARDIOLOGY REPORT ---
APPROVED REPORT EXAM: Comprehensive 2D, Doppler, and color-flow Echocardiogram. Patient Location: OUT-PATIENT Blood Pressure: 139 / 72 mmHg Heart Rate: 78 bpm Rhythm: SINUS Indications [facility] [employer] Buyer: Gauri Mares MD Previous echo: 12/21/18 [facility] RL EF: 65-70%; nlLV;nlRV; nlLA; nlMV-trMR; trTR;nlAO; noPE 2D Dimensions RVDd 3.0 cm LA Diam 4.3 cm RA Major 4.5 cm RA Minor 3.0 cm LVOT Diameter 1.96 (1.8-2.4cm) M-Mode Dimensions Left Atrium(MM) 4.89 (2.5-4.0cm) IVSd 1.05 (0.7-1.1cm) LVDd 4.57 (4.0-5.6cm) Aortic Root 3.14 (2.2-3.7cm) PWd 1.16 (0.7-1.1cm) Aortic Cusp Exc 1.62 (1.5-2.0cm) IVSs 1.41 cm MV EPSS 0.5 (<0.5cm) LVDs 2.73 (2.0-3.8cm) FS (%) 40 % PWs 1.43 cm ESV(Teich) 27.8 ml LVEF(%) 71 (>50%) Aortic Valve AoV Peak Parker. 227.4 cm/s AoV VTI 46.0 cm AO Peak GR. 20.8 mmHg AO Mean GR. 11 mmHg LVOT VTI 20.87 cm LVOT Peak Parker. 118.0 cm/s TORIN (VMAX) 1.66 cm2 TORIN (VTI) 1.66 cm2 AV DI 0.45 % Mitral Valve MV E Velocity 100.7 cm/s MV DECEL TIME 132 ms MV A Velocity 112.1 cm/s MV PHT 56 ms E/A Ratio 0.9 MVA (PHT) 3.90 cm2 TDI E/Medial E' 14.0 Tricuspid Valve TR P. Velocity 196 cm/s RAP ESTIMATE 5 mmHg TR Peak Gr. 15 mmHg RVSP 20 mmHg LEFT VENTRICLE Normal LV size and function. Mild concentric hypertrophy. LVEF is 65-70%. GLS - 19 %. RIGHT VENTRICLE RV is normal size and function. ATRIA Left atrium is mildly dilated. Mobile interatrial septum - no flow detected by color and spectral flow Doppler. AORTIC VALVE Trileaflet AV appears mildly calcified and sclerosed with mild stenosis. Stenosis demonstrated by reduced excursion and increased transvalvular and ascending aorta turbulance. TORIN: 1.60cmsq; Pkv: 2.27 m/sec; Gradients: 22 / 11 mmHG. Trivial insufficiency by color spectral flow Doppler. MITRAL VALVE Mild MV annular and leaflet calcification without stenosis. Mild regurgitation by color and spectral flow Doppler. TRICUSPID VALVE TV appears structurally normal with trace regurgitation by color and spectral flow Doppler. PULMONIC VALVE Normal PV without stenosis, physiologic insufficiency by color and spectral flow Doppler. GREAT VESSELS Aortic root is normal in size. Ascending aorta is normal in size. PERICARDIUM Normal pericardium. No effusion. Other Information Study Quality: Adequate Conclusion Normal LV size and function. Mild concentric hypertrophy. LVEF is 65-70%. GLS -19 %. RV is normal size and function. Left atrium is mildly dilated. Mobile interatrial septum - no flow detected by color and spectral flow Doppler. Trileaflet AV appears mildly calcified and sclerosed with mild stenosis. Stenosis demonstrated by reduced excursion and increased transvalvular and ascending aorta turbulance. TORIN: 1.60cmsq; Pkv: 2.27 m/sec; Gradients: 22 / 11 mmHG. Trivial insufficiency by color spectral flow Doppler. Mild MV annular and leaflet calcification without stenosis. Mild regurgitation by color and spectral flow Doppler. TV appears structurally normal with trace regurgitation by color and spectral flow Doppler. Normal pericardium. No effusion.
== END 2025-04-26 23:59 | disposition home or self-care (01) ==
LOC: RAD 12:50
PROVIDERS: ATTEND Physician Assistant
DX: I08.8 Other rheumatic multiple valve diseases (principal); R01.1 Cardiac murmur, unspecified; R53.83 Other fatigue; I11.9 Hypertensive heart disease without heart failure
CPT/HCPCS: 93306